=== PATIENT | male | born 1990 | race Caucasian/White ===

== ENCOUNTER 2023-07-25 20:37 | Emergency (ER) | payer SELFPAY ==
[~2023-07-25] VITALS: Ht 172.7 cm; Wt 83.8 kg
[2023-07-25 21:26] LABS: BASO # 0.1 10^3/uL (0.0-0.2); BASO % 1.4 % (0.0-1.0); EOS # 0.6 10^3/uL (0.0-0.5); EOS % 7.7 % (0.0-3.0); HEMATOCRIT 47.5 % (42.0-52.0); HEMOGLOBIN 16.4 g/dl (13.5-17.5); LYMPH # 1.9 10^3/uL (1.5-5.0); LYMPH % 23.6 % (24.0-44.0); MEAN CORPUSCULAR HEMOGLOBIN 30.1 pg (27.0-33.0); MEAN CORPUSCULAR HGB CONC 34.5 g/dl (32.0-36.5); MEAN CORPUSCULAR VOLUME 87.3 fl (80.0-96.0); MONO # 0.9 10^3/uL (0.0-0.8); MONO % 11.1 % (2.0-8.0); NEUTROPHILS # 4.5 10^3/uL (1.5-8.5); PLATELET COUNT, AUTOMATED 254 10^3/uL (150-450); RED BLOOD COUNT 5.44 10^6/uL (4.30-6.10)
[2023-07-25 21:45] LABS: LIPASE 33 U/L (12-53)
[2023-07-25 21:47] LABS: ALBUMIN 4.1 G/DL (3.2-5.2); ALKALINE PHOSPHATASE 57 U/L (46-116); ALT/SGPT 36 U/L (7.0-40); AST/SGOT 19 U/L (<34); BILIRUBIN,DIRECT 0.2 MG/DL (<0.4); BILIRUBIN,TOTAL 0.6 MG/DL (0.3-1.2); BLOOD UREA NITROGEN 12 MG/DL (9-23); CALCIUM LEVEL 9.4 MG/DL (8.5-10.1); CARBON DIOXIDE LEVEL 30 MMOL/L (20-31); CHLORIDE LEVEL 103 MMOL/L (98-107); CREATININE FOR GFR 0.92 MG/DL (0.70-1.30); GLOMERULAR FILTRATION RATE > 60.0 (>60); GLUCOSE, FASTING 75 MG/DL (60-100); POTASSIUM SERUM 4.1 MMOL/L (3.5-5.1); SODIUM LEVEL 138 MMOL/L (136-145); TOTAL PROTEIN 7.2 G/DL (5.7-8.2)
[2023-07-26] MEDS: KETOROLAC 30 MG/ML 1ML VIAL IV ONE (00:34)
[2023-07-26] MEDS: NS 1,000 ML IV ONE (00:43)
[2023-07-26] MEDS ORDERED: ISOVUE-370 76% 100ML VIAL As Ordered ONE (01:03)
[2023-07-26 02:45] LABS: MONO SCRN NEGATIVE (NEGATIVE)
[2023-07-26] MEDS ORDERED: NAPR-837 PO (03:48)
[2023-07-26] MEDS ORDERED: METH-1165 PO (03:48)
[2023-07-26 04:00] VITALS: BP 130/69
[2023-07-26 04:12] VITALS: TEMP 97.3; O2SAT 97
[2023-07-26] MEDS: methocarbamoL 750 MG TAB PO ONE (04:18)
== END 2023-07-26 04:22 | disposition home or self-care (01) ==
LOC: M ED 20:37
DX: R10.9 Unspecified abdominal pain (principal); N20.0 Calculus of kidney; R16.1 Splenomegaly, not elsewhere classified; F32.A Depression, unspecified; F41.9 Anxiety disorder, unspecified; F17.200 Nicotine dependence, unspecified, uncomplicated; Z91.048 Other nonmedicinal substance allergy status; Z87.442 Personal history of urinary calculi; Z79.1 Long term (current) use of non-steroidal anti-inflammatories (NSAID); Z79.899 Other long term (current) drug therapy
CPT/HCPCS: 74177; 80048; 80076; 81001; 83690; 85025; 86308; 96361; 96374; 99284; J1885; Q9967

== ENCOUNTER → 2023-10-09 | Outpatient (REF) | payer OTHER, SELFPAY ==
[~2023-10-09] MED LIST: METH-1165 PO; NAPR-837 PO
== END ==
LOC: M LAB REF 15:14
PROVIDERS: ATTEND Surgery
DX: D17.39 Benign lipomatous neoplasm of skin and subcutaneous tissue of other sites (principal)

== ENCOUNTER → 2024-05-25 | Outpatient (REF) | LOC: M CAHLAB 21:53 → M LAB REF 21:53 | DX: Z00.00 Encounter for general adult medical examination without abnormal findings (principal) ==

== ENCOUNTER 2025-04-25 03:43 | Observation (INO) | payer OTHER, SELFPAY ==
[~2025-04-25] VITALS: Ht 172.7 cm; Wt 87.0 kg
[2025-04-25 04:17] LABS: BASO # 0.1 10^3/uL (0.0-0.2); BASO % 0.3 % (0.0-1.0); EOS # 0.1 10^3/uL (0.0-0.5); EOS % 0.3 % (0.0-3.0); LYMPH # 1.1 10^3/uL (1.5-5.0); LYMPH % 7.1 % (24.0-44.0); MONO # 1.3 10^3/uL (0.0-0.8); MONO % 8.8 % (2.0-8.0); NEUTROPHILS # 12.4 10^3/uL (1.5-8.5); NEUTROPHILS % 83.2 % (36.0-66.0); PLATELET COUNT, AUTOMATED 257 10^3/uL (150-450)
[2025-04-25 04:22] LABS: APPEARANCE, URINE HAZY (CLEAR); BACTERIA, URINE AUTO NEGATIVE (NEGATIVE); BILIRUBIN, URINE AUTO NEGATIVE (NEGATIVE); BLOOD, URINE BLOOD 3+ (NEGATIVE); GLUCOSE, URINE (UA) AUTO NEGATIVE (NEGATIVE); KETONE, URINE AUTO 1+ mg/dL (NEGATIVE); LEUKOCYTE ESTERASE, URINE AUTO NEGATIVE (NEGATIVE); MUCUS, URINE LARGE (NEGATIVE); NITRITE, URINE AUTO NEGATIVE (NEGATIVE); PROTEIN, URINE AUTO 2+ mg/dL (NEGATIVE); RBC, URINE AUTO 4 /HPF (0-3); SPECIFIC GRAVITY URINE AUTO 1.029 (1.002-1.035); SQUAMOUS EPITHELIAL CELL UR AU 0 /HPF (0-6); UROBILINOGEN, URINE AUTO 2.0 mg/dL (0.0-2.0); WBC, URINE AUTO 2 /HPF (0-3)
[2025-04-25 04:41] LABS: ALT/SGPT 25.0 U/L (7.0-40); AST/SGOT 16.0 U/L (<34); CALCIUM LEVEL 9.1 MG/DL (8.5-10.1); CARBON DIOXIDE LEVEL 26.0 MMOL/L (20-31); CHLORIDE LEVEL 103.0 MMOL/L (98-107); CREATININE FOR GFR 1.19 MG/DL (0.70-1.30); GLOMERULAR FILTRATION RATE 81.2 (>60); POTASSIUM SERUM 4.5 MMOL/L (3.5-5.1); SODIUM LEVEL 143.0 MMOL/L (136-145)
[2025-04-25] MEDS: MORPHINE 4 MG/ML 1 ML VIAL IV PRN (06:44)
[2025-04-25] MEDS: ONDANSETRON 4MG/2ML VIAL IV ONE (07:44)
[2025-04-25] MEDS ORDERED: ONDANSETRON 4MG TAB PO PRN (09:50)
[2025-04-25] MEDS ORDERED: MELO15TA28 PO (09:54)
[2025-04-25] MEDS ORDERED: GABA-1172 PO (09:54)
[2025-04-25] MEDS ORDERED: MAGN400T2 PO (09:54)
[2025-04-25] MEDS ORDERED: CYCL5TAB4 PO (09:54)
[2025-04-25] MEDS ORDERED: DIPH12.529 PO (09:54)
[2025-04-25] MEDS ORDERED: INDE60CA4 PO (09:56)
[2025-04-25] MEDS ORDERED: OMEP40CA4 PO (09:56)
[2025-04-25] MEDS ORDERED: VITA100T39 PO (09:57)
[2025-04-25] MEDS ORDERED: ZOLM5TAB20 PO (09:58)
[2025-04-25] MEDS ORDERED: ZOLO100T PO (09:58)
[2025-04-25] MEDS ORDERED: REST0.05 OS (10:00)
[2025-04-25] MEDS ORDERED: GENT1SOL17 OS (10:00)
[2025-04-25] MEDS ORDERED: D 1010004 PO (10:03)
[2025-04-25] MEDS ORDERED: DICL100G10 TOP (10:03)
[2025-04-25] MEDS ORDERED: HOME MED LIST COMPLETE! XX SCH (10:05)
[2025-04-25 10:49] LABS: PLATELET COUNT, AUTOMATED 220 10^3/uL (150-450)
[2025-04-25 11:11] LABS: INR 0.97
[2025-04-25 11:18] LABS: ALT/SGPT 22.0 U/L (7.0-40); AST/SGOT 14.0 U/L (<34); CALCIUM LEVEL 8.6 MG/DL (8.5-10.1); CARBON DIOXIDE LEVEL 29.0 MMOL/L (20-31); CHLORIDE LEVEL 104.0 MMOL/L (98-107); CREATININE FOR GFR 1.4 MG/DL (0.70-1.30); GLOMERULAR FILTRATION RATE 66.8 (>60); POTASSIUM SERUM 4.0 MMOL/L (3.5-5.1); SODIUM LEVEL 143.0 MMOL/L (136-145)
[2025-04-25] MEDS: TAMSULOSIN 0.4 MG CAP PO SCH (12:37)
[2025-04-25] MEDS: SERTRALINE 100 MG TAB PO SCH (12:37)
[2025-04-25] MEDS: OMEPRAZOLE 20MG CAP PO SCH (12:38)
[2025-04-25] MEDS: MAGNESIUM OXIDE 400 MG TAB PO SCH (12:38)
[2025-04-25] MEDS: GABAPENTIN 300 MG CAP PO PRN (12:39)
[2025-04-25] MEDS: CYCLOBENZAPRINE 5 MG TABLET PO PRN (12:39)
[2025-04-25] MEDS: NICOTINE 14 MG/24 HR TRANSDERMAL TD SCH (12:43)
[2025-04-25] MEDS: NS (Normal Saline) 0.9% 1,000 ML IV SCH (12:48)
[2025-04-25 14:08] VITALS: BP 164/99; TEMP 97.9; O2SAT 99
[2025-04-25 20:04] VITALS: BP 144/88; TEMP 98.7; O2SAT 97
[2025-04-25] MEDS: PROPRANOLOL 60MG LA CAP PO SCH (20:08)
[2025-04-26] VITALS (8 sets, daily range): BP systolic 106–146; BP diastolic 64–88; TEMP 97.3–98.9; O2SAT 96–98
[2025-04-26 06:43] LABS: PLATELET COUNT, AUTOMATED 203 10^3/uL (150-450)
[2025-04-26 06:59] LABS: ALT/SGPT 16.0 U/L (7.0-40); AST/SGOT 15.0 U/L (<34); CALCIUM LEVEL 7.6 MG/DL (8.5-10.1); CARBON DIOXIDE LEVEL 26.0 MMOL/L (20-31); CHLORIDE LEVEL 106.0 MMOL/L (98-107); CREATININE FOR GFR 1.53 MG/DL (0.70-1.30); GLOMERULAR FILTRATION RATE 60.1 (>60); POTASSIUM SERUM 4.3 MMOL/L (3.5-5.1); SODIUM LEVEL 141.0 MMOL/L (136-145)
[2025-04-26] MEDS ORDERED: MORPHINE 2 MG/ML 1 ML VIAL IV PRN (07:40)
[2025-04-26] MEDS ORDERED: ACETAMINOPHEN 1000MG/100ML IV BAG As Ordered ONE (07:59)
[2025-04-26] MEDS ORDERED: ONDANSETRON 4MG/2ML VIAL As Ordered ONE (07:59)
[2025-04-26] MEDS ORDERED: KETOROLAC 30 MG/ML 1 ML VIAL As Ordered ONE (07:59)
[2025-04-26] MEDS ORDERED: MIDAZOLAM INJ 2 MG/2 ML VIAL As Ordered ONE (07:59)
[2025-04-26] MEDS ORDERED: LIDOCAINE 2% 100 MG/5 ML SDV (FOR ANES.) As Ordered ONE (08:00)
[2025-04-26] MEDS ORDERED: dexAMETHasone 4 MG/ML 1 ML VIAL As Ordered ONE (08:00)
[2025-04-26] MEDS: ceFAZolin SOD 2 GM in DEXTROSE 5% (D5W) ADV/MINI-BAG 50 ML IV ONE (09:05)
[2025-04-26] MEDS: ISOVUE-300 61% 100 ML VIAL As Ordered ONE (09:50)
[2025-04-26] MEDS: HYDROMORPHONE HCL 0.5 MG/0.5 ML SYRINGE IV PRN (10:38)
[2025-04-26] MEDS: ONDANSETRON 4MG/2ML VIAL IV PRN (10:39)
[2025-04-26] MEDS ORDERED: traMADol 50 MG TAB PO PRN (11:10)
[2025-04-26] MEDS: NS (Normal Saline) 0.9% 1,000 ML IV SCH (12:07)
[2025-04-26] MEDS: ACETAMINOPHEN 325 MG TAB PO PRN (18:08)
[2025-04-27 00:28] VITALS: BP 127/70; TEMP 97.8; O2SAT 96
[2025-04-27 04:00] VITALS: BP 123/71; TEMP 97.5; O2SAT 99
[2025-04-27 06:14] LABS: PLATELET COUNT, AUTOMATED 203 10^3/uL (150-450)
[2025-04-27 06:44] LABS: ALT/SGPT 15 U/L (7.0-40); AST/SGOT 13 U/L (<34); CALCIUM LEVEL 8.5 MG/DL (8.5-10.1); CARBON DIOXIDE LEVEL 29 MMOL/L (20-31); CHLORIDE LEVEL 104 MMOL/L (98-107); CREATININE FOR GFR 0.92 MG/DL (0.70-1.30); GLOMERULAR FILTRATION RATE > 90.0 (>60); POTASSIUM SERUM 4.2 MMOL/L (3.5-5.1); SODIUM LEVEL 142 MMOL/L (136-145)
[2025-04-27 08:00] VITALS: BP 141/84; TEMP 97.7; O2SAT 99
== END 2025-04-27 12:23 | disposition home or self-care (01) ==
LOC: M ED 03:43 → M ED INP 10:02 → M MS4PR 12:10
PROVIDERS: ADMIT Internal Medicine; ATTEND Internal Medicine
DX: N20.1 Calculus of ureter (principal); N17.9 Acute kidney failure, unspecified; G43.909 Migraine, unspecified, not intractable, without status migrainosus; F41.9 Anxiety disorder, unspecified; F32.A Depression, unspecified; F17.210 Nicotine dependence, cigarettes, uncomplicated; F43.10 Post-traumatic stress disorder, unspecified; K22.70 Barrett's esophagus without dysplasia; Z79.899 Other long term (current) drug therapy
CPT/HCPCS: 36415; 52356; 74176; 76000; 80048; 80053; 80076; 81001; 82365; 83690; 85025; 85027; 85610; 85730; 87086; 96361; 96374; 96375; 96376; 99285; C1769; C2617; G0378; J0131; J0688; J1100; J1171; J1885; J2250; J2405; J3010; Q9967

== ENCOUNTER → 2025-05-17 | Outpatient (CLI) | payer OTHER ==
[~2025-05-17] MED LIST changes: +CYCL5TAB4 PO; +D 1010004 PO; +DICL100G10 TOP; +DIPH12.529 PO; +GABA-1172 PO; +GENT1SOL17 OS; +INDE60CA4 PO; +MAGN400T2 PO; +MELO15TA28 PO; +OMEP40CA4 PO; +REST0.05 OS; +VITA100T39 PO; +ZOLM5TAB20 PO; +ZOLO100T PO
== END ==
LOC: M PLALAB 09:22
PROVIDERS: ATTEND Urology
DX: N20.0 Calculus of kidney (principal)

== ENCOUNTER → 2025-05-26 | Outpatient (CLI) | payer OTHER ==
[2025-05-26 13:33] LABS: PLATELET COUNT, AUTOMATED 258 10^3/uL (150-450)
[2025-05-26 13:43] LABS: APPEARANCE, URINE HAZY (CLEAR); BACTERIA, URINE AUTO NEGATIVE (NEGATIVE); BILIRUBIN, URINE AUTO NEGATIVE (NEGATIVE); BLOOD, URINE BLOOD NEGATIVE (NEGATIVE); GLUCOSE, URINE (UA) AUTO NEGATIVE (NEGATIVE); KETONE, URINE AUTO NEGATIVE (NEGATIVE); LEUKOCYTE ESTERASE, URINE AUTO NEGATIVE (NEGATIVE); MUCUS, URINE SMALL (NEGATIVE); NITRITE, URINE AUTO NEGATIVE (NEGATIVE); PROTEIN, URINE AUTO 1+ mg/dL (NEGATIVE); RBC, URINE AUTO 0 /HPF (0-3); SPECIFIC GRAVITY URINE AUTO 1.020 (1.002-1.035); SQUAMOUS EPITHELIAL CELL UR AU 0 /HPF (0-6); UROBILINOGEN, URINE AUTO 0.2 mg/dL (0.0-2.0); WBC, URINE AUTO 1 /HPF (0-3)
[2025-05-26 14:02] LABS: CALCIUM LEVEL 9.5 MG/DL (8.5-10.1); CARBON DIOXIDE LEVEL 29 MMOL/L (20-31); CHLORIDE LEVEL 102 MMOL/L (98-107); CREATININE FOR GFR 0.83 MG/DL (0.70-1.30); GLOMERULAR FILTRATION RATE > 90.0 (>60); POTASSIUM SERUM 4.3 MMOL/L (3.5-5.1); SODIUM LEVEL 141 MMOL/L (136-145)
== END ==
LOC: M PLALAB 11:54
PROVIDERS: ATTEND Urology
DX: Z01.818 Encounter for other preprocedural examination (principal); N20.0 Calculus of kidney